=== PATIENT | female | born 2000 | race Caucasian/White ===

== ENCOUNTER 2022-02-11 13:07 | Emergency (ER) | payer MEDICAID, SELFPAY ==
[2022-02-11 13:13] VITALS: BP 100/69; PULSE 83; RESP 18; TEMP 37.1; O2SAT 99; BMI 21.2
== END 2022-02-11 17:27 | disposition left against medical advice (07) ==
LOC: HO.ED 17:21
PROVIDERS: Emergency Provider Emergency Medicine
DX: S81.811A Laceration without foreign body, right lower leg, initial encounter (principal); W45.8XXA Other foreign body or object entering through skin, initial encounter; Y93.9 Activity, unspecified; Y92.9 Unspecified place or not applicable; Y99.9 Unspecified external cause status
CPT/HCPCS: 99281